=== PATIENT | male | born 1950 | race Two or more races ===

== ENCOUNTER → 2024-08-23 | Day surgery (SDC) | payer MEDICAID, MEDICARE ==
[2024-08-18 10:35] LABS: Hemoglobin 16.8 g/dL (13.5-17.5); Nucleated Red Blood Cells % 0.1 %
[2024-08-18 10:38] LABS: Hematocrit 49.3 % (41.0-53.0); Mean Corpuscular Hemoglobin 27.7 pg (28.0-32.0); Mean Corpuscular Volume 81.4 fL (80.0-100.0)
[2024-08-18 10:40] LABS: INR 1.04 (0.9-1.15); Partial Thromboplastin Time 28.5 SEC (24.5-34.5); Prothrombin Time 11.0 sec (9.3-11.8)
[2024-08-18 10:41] LABS: Urine Protein, UAD Negative (Negative)
[2024-08-18 10:44] LABS: Alanine Aminotransferase 39 U/L (7-40); Alkaline Phosphatase 101 U/L (46-116); Anion Gap 12 (5-15); BUN/Creatinine Ratio 18.4 (10.0-20.0); Calcium 9.5 mg/dL (8.7-10.4); Carbon Dioxide 24 mmol/L (20-31); Chloride 106 mmol/L (98-107); Sodium 142 mmol/L (136-145); Total Protein 7.2 g/dL (5.7-8.2)
[2024-08-18 10:50] LABS: Albumin 5.0 g/dL (3.2-4.8); Bilirubin, Total 1.2 mg/dL (0.2-1.0); Blood Urea Nitrogen 29 mg/dL (9-23); Glucose 160 mg/dL (74-106); Potassium 3.3 mmol/L (3.5-5.1)
[~2024-08-23] VITALS: Ht 177.8 cm; Wt 82.1 kg
[~2024-08-23] MED LIST: ACET-1341 OR; ACETAMINOPHEN IV 100 ML IV ONE; ALL100T PO; AML5T PO; CELECOXIB 100 MG CAP ONE; DAPA1TAB4 PO; FLUMAZENIL 0.1 MG/ML INJ 10ML MDV IV PRN; GABAPENTIN 100 MG CAP ONE; GLYCOPYRROLATE 0.2 MG/ML 1ML VIAL ONE; HYDR12.59 PO; HYDR50TA47 PO; HYDROmorphone HCL 2 MG/ML VL/or syr IV PRN; KETOROLAC TROMETH 30 MG/ML 1ML VIAL ONE; LATA0.008 EACHEYE; LIDOCAINE 1% INJ PF 5ML AMP ONE; LOSA-533 PO; NALOXONE HCL 0.4 MG/ML VIAL IV PRN; ONDANSETRON HCL 4 MG/2 ML VIAL IV PRN; ONDANSETRON HCL 4 MG/2 ML VIAL ONE; PRAV20TA3 PO; PROPOFOL 10 MG/ML 20 ML IV ONE; TIMO0.5S35 EACHEYE; ceFAZolin 2 GM/D5W50ml 50 ML IV ONE; fentaNYL CITRATE 100 MCG/2 ML VL IV PRN; hydrALAZINE HCL 20 MG/ML VL IV PRN
[2024-08-23] MEDS: ACETAMINOPHEN IV 1000 MG/100ML (10MG/ML) IV ONE (13:50)
[2024-08-23] MEDS: GABAPENTIN 100 MG CAP PO ONE (13:51)
[2024-08-23] MEDS: CELECOXIB 100 MG CAP PO ONE (13:51)
[2024-08-23] MEDS: BUPIVACAINE 0.5% P/F INJ 10 ML VIAL ONE (14:52)
[2024-08-23 15:05] VITALS: TEMP 97.3; O2SAT 100
--- NOTE | 2024-08-23 15:08 | DVHOP2 ---
Operative Report - 2 Report Details Date: 08/23/24 Preop Diagnosis: 1. Right foot second toe exostosis 2. Right foot third toe exostosis 3. Right foot pain Postop Diagnosis: Same as preop Surgeon: Genet Fernández MD Anesthesiologist: See anesthesia Anesthesia: General Consent: The patient was informed of the risks and benefits of the procedure. These include but are not limited to complications of anesthesia, postoperative infection, incomplete relief of symptoms, recurrence of symptoms, damage to blood vessels, nerves and tendons, deep venous thrombosis, pulmonary embolism and possible need for repeat surgery in the future. Complications: None Estimated Blood Loss: Minimal Fluids: See anesthesia Findings: Consistent with diagnosis Indications for Surgery: Worsening right foot pain Name of Procedure Performed 1. Right second toe exostectomy (97893) 2. Right third toe exostectomy (00509) Procedure Details Procedure Details: PRE-PROCEDURE INFORMATION: In the pre-op holding area, the extremity to be operated on was clearly marked and the patient verified correct laterality of the marking. The patient was transferred to the OR table and placed in a supine position. A timeout was performed in which identification of the correct patient, procedure, location, and materials was done. The right foot and leg were prepped and draped in normal sterile fashion. DESCRIPTION OF PROCEDURE: Attention was directed to the right 2nd digit where the exostosis was located. A stab incision was made just medial to the 5th digit. The incision was deepened through blunt and sharp dissection. Care was taken to avoid any neurovascular and tendinous structures. Using the Arthrex MIS bur, the exostosis was then removed in its entirety. After the bur was used the exostosis was no longer felt clinically. The incision was closed with a 4-0 nylon. Attention was directed to the right 3rd digit where the exostosis was located. A stab incision was made just medial to the 5th digit. The incision was deepened through blunt and sharp dissection. Care was taken to avoid any neurovascular and tendinous structures. Using the Arthrex MIS bur, the exostosis was then removed in its entirety. After the bur was used the exostosis was no longer felt clinically. The incision was closed with a 4-0 nylon. All surgical wounds were irrigated copiously with saline and closed in layers with the aforementioned suture material. A dry sterile dressing was placed on the surgical extremity. The patient was placed in a postop shoe. POSTOPERATIVE INFORMATION: The patient tolerated the above noted procedure and anesthesia well and was transferred to the PACU with vital signs stable, and vascular status intact with capillary refill intact to all digits. Postoperative instructions reviewed in detail with the patient with written instructions provided. Patient will return to clinic in approximately 10-14 days for first postoperative visit. Patient has the number of the clinic and was instructed to call prior to that time should any problems, questions, or concerns arise. Condition Good Disposition Home GENET FERNÁNDEZ DPM Aug 23, 2024 15:08
[2024-08-23 15:30] VITALS: BP 137/79; PULSE 54; RESP 12; O2SAT 95
== END | disposition home or self-care (01) ==
LOC: SUR 08:50
PROVIDERS: ATTEND Podiatrist
DX: D16.31 Benign neoplasm of short bones of right lower limb (principal); M77.51 Other enthesopathy of right foot and ankle; I12.9 Hypertensive chronic kidney disease with stage 1 through stage 4 chronic kidney disease, or unspecified chronic kidney disease; E11.22 Type 2 diabetes mellitus with diabetic chronic kidney disease; N18.30 Chronic kidney disease, stage 3 unspecified; E78.00 Pure hypercholesterolemia, unspecified; J45.909 Unspecified asthma, uncomplicated; M10.9 Gout, unspecified; Z79.899 Other long term (current) drug therapy; Z98.890 Other specified postprocedural states; Z87.891 Personal history of nicotine dependence; Z88.0 Allergy status to penicillin
CPT/HCPCS: 28124; 36415; 80053; 81003; 82962; 85025; 85610; 85730; J0690; J2704; J3490; J0131; J1100; J1885; J2405